=== PATIENT | female | born 2000 | race African-American/Black ===

== ENCOUNTER 2024-03-31 17:47 | Emergency (ER) | payer OTHER ==
[2024-03-31 18:16] LABS: BASOPHILS % (AUTO) 0.2 %; HCT - HEMATOCRIT 38.7 % (37.0-47.0); HGB - HEMOGLOBIN 12.1 g/dL (12.0-16.0); LYMPHOCYTES # (AUTO) 0.6 10^3/uL (1.5-3.5); LYMPHOCYTES % (AUTO) 9.9 %; MEAN CORPUSCULAR HGB CONC 31.3 g/dL (32.0-36.0); MEAN PLATELET VOLUME 9.9 fL (7.9-10.8); MONOCYTES # (AUTO) 0.5 10^3/uL (0.0-1.0); MONOCYTES % (AUTO) 9.2 %; NEUTROPHILS # (AUTO) 4.6 10^3/uL (1.5-6.6); NEUTROPHILS % (AUTO) 80.5 %; PLT - PLATELET COUNT 245 10^3/uL (130-450); RED BLOOD COUNT 4.66 10^6/uL (4.20-5.40); RED CELL DISTRIBUTION WIDTH 13.6 % (12.0-15.0); WHITE BLOOD COUNT 5.8 x10^3/uL (4.8-10.8)
--- NOTE | 2024-03-31 18:17 | ED Physician Documentation ---
PD HPI NVD - Stated complaint Stated Complaint: V/D - Chief complaint Chief Complaint: Abd Pain - History obtained from History obtained from: Patient - History of Present Illness Timing - onset: Today Timing - duration: Hours (14) Timing - details: Abrupt onset Pain level max: 3 Pain level now: 3 Associated symptoms: Abdominal pain (crampy, diffuse) Contributing factors: Travel (flew in from [place] last night). No: Recent antibiotics - Additonal information Additional information: Patient is a 23-year-old female who got off of an airplane last night and started having vomiting and diarrhea, this is continued throughout the day. Denies any possibility of 's. No fevers. No chills. Nothing makes it better or worse. No blood in the stool. No blood in the emesis. Has not taken anything for vomiting today. Review of Systems Constitutional: denies: Fever, Chills Respiratory: denies: Cough GI: reports: Abdominal Pain (Intermittent, mild, diffuse, crampy), Nausea, Vomiting, Diarrhea. denies: Hematemesis, Bloody / black stool Neurologic: denies: Headache PD PAST MEDICAL HISTORY - Past Medical History Past Medical History: No Cardiovascular: None Respiratory: None Neuro: None Endocrine/Autoimmune: None - Past Surgical History Past Surgical History: No - Present Medications Home Medications: Ambulatory Orders Medication Instructions Recorded Confirmed Ibuprofen [Motrin] 600 mg PO TID PRN #25 tab 03/07/20 03/31/24 Acetaminophen [Tylenol] 650 mg PO Q6H PRN 03/31/24 03/31/24 Ondansetron Odt [Zofran] 4 mg TL Q6H PRN #20 tablet 03/31/24 - Allergies Allergies/Adverse Reactions: Allergies Allergy/AdvReac Type Severity Reaction Status Date / Time No Known Drug Allergies Allergy Verified 03/31/24 17:50 - Social History Does the pt smoke?: No Smoking Status: Never smoker Does the pt drink ETOH?: No Does the pt have substance abuse?: No - Immunizations Immunizations are current?: Yes - POLST Patient has POLST: No PD ED PE NORMAL - Vitals Vital signs reviewed: Yes - General General: Alert and oriented X 3, No acute distress - HEENT HEENT: PERRL, Moist mucous membranes - Neck Neck: Supple, no meningeal sign - Cardiac Cardiac: RRR, Strong equal pulses - Respiratory Respiratory: No respiratory distress, Clear bilaterally - Abdomen Abdomen: Soft, Non tender, Non distended - Back Back: No CVA TTP - Derm Derm: Warm and dry - Extremities Extremities: No edema - Neuro Neuro: Alert and oriented X 3 - Psych Psych: Normal mood, Normal affect Results - Vitals Vitals: Vital Signs - 24 hr 03/31/24 03/31/24 17:50 18:19 Temperature 37.1 C Heart Rate 100 100 Respiratory 16 16 Rate Blood Pressure 140/90 H 139/93 H O2 Saturation 100 98 Oxygen O2 Source Room air - Labs Labs: Laboratory Tests 03/31/24 03/31/24 18:10 18:10 WBC 5.8 RBC 4.66 Hgb 12.1 Hct 38.7 MCV 83.0 MCH 26.0 L MCHC 31.3 L RDW 13.6 Plt Count 245 MPV 9.9 Neut # (Auto) 4.6 Lymph # (Auto) 0.6 L [place] # (Auto) 0.5 Eos # (Auto) 0.0 Baso # (Auto) 0.0 Absolute Nucleated RBC 0.00 Nucleated RBC % 0.0 Sodium 136 Potassium 3.6 Chloride 104 Carbon Dioxide 27 Anion Gap 5.0 L BUN 15 Creatinine 0.9 Estimated GFR (MDRD) 93 Glucose 105 H Calcium 9.1 Total Bilirubin 0.7 AST 15 ALT 13 Alkaline Phosphatase 53 Total Protein 7.3 Albumin 4.0 Globulin 3.3 Albumin/Globulin Ratio 1.2 Lipase 12 PD Medical Decision Making - ED course Complexity details: reviewed results, re-evaluated patient, considered differential, d/w patient ED course: Patient is a 23-year-old female with what appears to be a viral gastroenteritis. She is well-appearing, nontoxic. Afebrile. Given IV fluids and Zofran. Laboratory testing was obtained. Feels better after Zofran. Patient is signed out to the oncoming emergency department physician awaiting urinalysis and hCG testing as well as p.o. challenge with repeat evaluation. If she is feeling better, expect she can be discharged home with a diagnosis of viral gastroenteritis. This document was made in part using voice recognition software. While efforts are made to proofread this document, sound alike and grammatical errors may occur. Departure - Departure Clinical Impression: Viral gastroenteritis Condition: Good Instructions: ED Gastroenteritis Viral Follow-Up: your,doctor in 3 days if not better [Other] Prescriptions: Ondansetron Odt [Zofran] 4 mg TL Q6H PRN #20 tablet PRN Reason: Nausea / Vomiting Comments: Your prescription was sent to [facility] in [place]. You appear to have a viral gastroenteritis, which is a viral disease that causes nausea, vomiting and diarrhea. These are usually self-limited. Usually the vomiting lasts for anywhere from 12 to 24 hours, the diarrhea usually last between 3 to 5 days. Please drink plenty of fluids and return if you worsen. Forms: PCP List
[2024-03-31] MEDS: ONDANSETRON 4 MG/2 ML VIAL IVP STA (18:35)
[2024-03-31] MEDS: SODIUM CHLORIDE 0.9% 1,000 ML IV STA ×2 (18:36)
[2024-03-31 18:45] LABS: ALBUMIN/GLOBULIN RATIO 1.2 (1.0-2.2); BILIRUBIN,TOTAL 0.7 mg/dL (0.2-1.0); CALCIUM 9.1 mg/dL (8.5-10.3); CREATININE 0.9 mg/dL (0.6-1.3); POTASSIUM 3.6 mmol/L (3.5-4.5); TOTAL PROTEIN 7.3 g/dL (6.4-8.9)
[2024-03-31 19:18] LABS: BILIRUBIN,URINE NEGATIVE (NEGATIVE); GLUCOSE, URINE (UA) NEGATIVE (NEGATIVE); KETONES,URINE (UA) 40 mg/dL (NEGATIVE); LEUKOCYTE ESTERASE, URINE NEGATIVE (NEGATIVE); NITRITE,URINE NEGATIVE (NEGATIVE); OCCULT BLOOD,URINE LARGE (NEGATIVE); PROTEIN,URINE NEGATIVE (NEGATIVE); UROBILINOGEN,URINE 0.2 (NORMAL) E.U./dL (NORMAL)
[2024-03-31 19:19] LABS: CLARITY,URINE HAZY (CLEAR); HCG UR QUAL NEGATIVE
[2024-03-31 19:26] LABS: BACTERIA,URINE Few /HPF (None Seen); RBC,URINE TNTC /HPF (0-5); SQUAMOUS EPITHELIAL CELL,UR FEW Squamous (<= Few); WBC,URINE 0-3 /HPF (0-5)
--- NOTE | 2024-03-31 20:17 | ED Physician Documentation ---
ED Addendum - Addendum Addendum: 03/31/24 20:16 Patient received a signout from outgoing physician, please see their do cumentation for further detail. Patient evaluated independently at bedside. Found to be resting comfortably. Tolerated p.o. trial. Abdominal exam remains benign. Will discharge with medication for symptomatic management and clear return precautions given.
[2024-03-31 20:31] VITALS: BP 128/88; O2SAT 100
== END 2024-03-31 20:24 | disposition home or self-care (01) ==
LOC: ED 17:47
DX: A08.4 Viral intestinal infection, unspecified (principal)
CPT/HCPCS: 36415; 80053; 81001; 81003; 81025; 83690; 85025; 87086; 96374; 99283